=== PATIENT | female | born 1960 | race Two or more races ===

== ENCOUNTER 2016-07-05 12:26 | Inpatient (IN) | payer MEDICAID ==
[~2016-07-05] VITALS: Ht 162.6 cm; Wt 81.6 kg
[2016-07-05] MEDS ORDERED: GLU850 PO ×2 (14:58→16:17)
[2016-07-05 15:01] LABS: BASOPHIL % 0.4 % (0-2); PLATELET COUNT 246 x10^3mcL (130-400)
[2016-07-05 15:14] LABS: CALCIUM 9.9 mg/dL (8.5-10.1); CARBON DIOXIDE 29.6 mmol/L (21-32); CHLORIDE SERUM 100 mmol/L (98-107); CREATININE SERUM 0.9 mg/dL (0.6-1.0); GFR1 > 60 mL/min; GLUCOSE SERUM 277 mg/dL (74-106); POTASSIUM SERUM 3.6 mmol/L (3.5-5.1); SODIUM SERUM 139 mmol/L (136-145)
[2016-07-05 15:19] LABS: ALKALINE PHOSPHATASE 105 U/L (46-116); ALT/SGPT 52 U/L (14-59); AST/SGOT 48 U/L (15-37); BILIRUBIN TOTAL 0.6 mg/dL (0.20-1.00); LIPASE 167 IU/L (73-393)
[2016-07-05 15:20] LABS: ALBUMIN 3.2 g/dL (3.4-5.0)
[2016-07-05 15:28] LABS: RED CELL DISTRIBUTION WIDTH 18.8 % (11.5-14.5)
[2016-07-05] MEDS ORDERED: DIOVAN HCT1 TA1 PO (16:19)
[2016-07-05] MEDS ORDERED: NOR5 PO (16:19)
[2016-07-05] MEDS ORDERED: ASPIR LOW81 MG (16:20)
[2016-07-05] MEDS ORDERED: TOPROL XL50 MG PO (16:20)
[2016-07-05] MEDS ORDERED: ASPIR LOW81 MG PO (16:20)
[2016-07-05] MEDS ORDERED: ZOCOR20 MG PO (16:21)
[2016-07-05] MEDS ORDERED: LASIX40 MG PO (16:21)
[2016-07-05] MEDS ORDERED: LEVOTHYROXINE0.1 M2 PO (16:36)
[2016-07-05] MEDS ORDERED: [UNRECOGNIZED DRUG - OTHER] SC (16:39)
[2016-07-05] MEDS ORDERED: [UNRECOGNIZED DRUG - OTHER] SC (16:40)
[2016-07-05] MEDS ORDERED: [UNRECOGNIZED DRUG - OTHER] SQ (16:41)
[2016-07-05 17:14] LABS: CHOLESTEROL/HDL RATIO 3.5
[2016-07-05 17:16] LABS: T3 TOTAL 1.05 ng/mL
[2016-07-05 17:20] LABS: FREE T4 1.36 ng/dL (0.76-1.46); FREE THYROXINE INDEX 3.5 ug/dL (1.4-4.5); T4(THYROXINE) 11.5 ug/dL (4.7-13.3)
[2016-07-05 17:25] LABS: MAGNESIUM 1.9 mg/dL (1.8-2.4); PHOSPHOROUS 3.5 mg/dL (2.5-4.9)
[2016-07-05 17:48] VITALS: BP 133/78
[2016-07-05 19:20] VITALS: BP 107/46
[2016-07-05 19:33] LABS: microscopic required? NO
[2016-07-05 19:39] LABS: urine erythrocyte NEGATIVE (NEGATIVE)
[2016-07-05 19:48] LABS: AMPHETAMINE QUAL UR NONE DETECTED (NEG <=1000)
[2016-07-06 06:00] VITALS: BP 110/48
[2016-07-06 06:26] LABS: BASOPHIL % 0.8 % (0-2); PLATELET COUNT 184 x10^3mcL (130-400)
[2016-07-06 06:42] LABS: CALCIUM 8.9 mg/dL (8.5-10.1); CARBON DIOXIDE 29.6 mmol/L (21-32); CHLORIDE SERUM 105 mmol/L (98-107); CREATININE SERUM 0.8 mg/dL (0.6-1.0); GFR1 > 60 mL/min; GLUCOSE SERUM 232 mg/dL (74-106); MAGNESIUM 1.8 mg/dL (1.8-2.4); PHOSPHOROUS 3.1 mg/dL (2.5-4.9); POTASSIUM SERUM 4.2 mmol/L (3.5-5.1); SODIUM SERUM 140 mmol/L (136-145)
[2016-07-06 06:45] LABS: RED CELL DISTRIBUTION WIDTH 18.9 % (11.5-14.5)
[2016-07-06 09:41] VITALS: BP 131/70
[2016-07-06 09:44] LABS: IRON 63 ug/dL (50-170); TOTAL IRON BINDING CAPACITY 387 ug/dL (250-450)
[2016-07-06 09:55] LABS: RED BLOOD CELLS 4.38 M/mm3 (4.10-5.10)
[2016-07-06 17:39] VITALS: BP 129/68
[2016-07-06 19:55] VITALS: BP 119/55
[2016-07-07 05:34] VITALS: BP 141/77
[2016-07-07 05:39] VITALS: BP 141/77
[2016-07-07 06:27] LABS: BASOPHIL % 0.5 % (0-2); PLATELET COUNT 209 x10^3mcL (130-400)
[2016-07-07 06:44] LABS: RED CELL DISTRIBUTION WIDTH 19.2 % (11.5-14.5); rbc morphology (normal/abnorm) ABNORMAL (NORMAL)
[2016-07-07 06:45] LABS: CALCIUM 9.2 mg/dL (8.5-10.1); CARBON DIOXIDE 27.8 mmol/L (21-32); CHLORIDE SERUM 105 mmol/L (98-107); CREATININE SERUM 0.8 mg/dL (0.6-1.0); GFR1 > 60 mL/min; GLUCOSE SERUM 160 mg/dL (74-106); MAGNESIUM 1.8 mg/dL (1.8-2.4); PHOSPHOROUS 3.7 mg/dL (2.5-4.9); POTASSIUM SERUM 4.3 mmol/L (3.5-5.1); SODIUM SERUM 140 mmol/L (136-145)
[2016-07-07 09:17] VITALS: BP 152/85
[2016-07-07 17:17] VITALS: BP 147/73
[2016-07-07] MEDS ORDERED: NIT0.4 SL (17:39)
[2016-07-07] MEDS ORDERED: NEU300 PO (17:40)
[2016-07-07] MEDS ORDERED: THERA TABS1 TAB PO (17:41)
[2016-07-07 17:48] VITALS: BP 147/73
== END 2016-07-07 18:45 | disposition home or self-care (01) | DRG 243 ==
LOC: ED 12:26 → DU 16:04 → MU 16:04 → DU 17:21 → MU 07-06 06:25
PROVIDERS: Emergency Medicine; Family Medicine; Internal Medicine Gastroenterology; ADMIT Family Medicine
PROC: 0DB68ZX Excision of Stomach, Via Natural or Artificial Opening Endoscopic, Diagnostic (ICD-10-PCS; principal; 2016-07-06 10:30)
DX: K21.9 Gastro-esophageal reflux disease without esophagitis (principal); N17.0 Acute kidney failure with tubular necrosis; I50.43 Acute on chronic combined systolic (congestive) and diastolic (congestive) heart failure; E11.51 Type 2 diabetes mellitus with diabetic peripheral angiopathy without gangrene; E11.42 Type 2 diabetes mellitus with diabetic polyneuropathy; D68.69 Other thrombophilia; E11.65 Type 2 diabetes mellitus with hyperglycemia; E03.9 Hypothyroidism, unspecified; I11.0 Hypertensive heart disease with heart failure; E78.00 Pure hypercholesterolemia, unspecified; K76.0 Fatty (change of) liver, not elsewhere classified; E66.9 Obesity, unspecified; Z79.82 Long term (current) use of aspirin; Z79.4 Long term (current) use of insulin; Z68.30 Body mass index [BMI] 30.0-30.9, adult; Z87.891 Personal history of nicotine dependence; Z79.84 Long term (current) use of oral hypoglycemic drugs
CPT/HCPCS: 43235; 80307; 82962; 83880; 84439; J1200; J1610; J2250; J2310; J3010; J3490; J7030; J7042; Q0092; Q9966; Q9967